=== PATIENT | male | born 1935 | race Caucasian/White ===

== ENCOUNTER 2017-07-06 05:46 | Observation (INO) | payer MEDICARE ==
[2017-07-05 13:27] LABS: BASOPHILS % 0.4 % (0.0-1.0); EOSINOPHILS # (AUTO) 0.3 (0.0-0.4); EOSINOPHILS % 2.9 % (0.0-6.0); HEMATOCRIT 46.5 % (38.2-49.6); HEMOGLOBIN 15.8 g/dL (14.0-18.0); LYMPHOCYTES % 22.9 % (18.0-39.1); MEAN CORPUSCULAR HEMOGLOBIN 33.4 pg (28-32); MEAN CORPUSCULAR VOLUME 98.3 fL (81-99); MONOCYTES % 10.8 % (4.4-11.3); NEUTROPHILS # (AUTO) 5.6 (2.1-6.9); NEUTROPHILS % 62.6 % (38.7-80.0); PLATELET COUNT 213 x10e3/uL (140-360); RED BLOOD COUNT 4.73 x10e6/uL (4.3-5.7); RED CELL DISTRIBUTION WIDTH 13.3 % (11.7-14.4)
[2017-07-05 13:42] LABS: ANION GAP 14.8 mmol/L (8-16); BLOOD UREA NITROGEN 15 mg/dL (7-26); BUN/CREATININE RATIO 17 (6-25); CALCIUM 9.5 mg/dL (8.4-10.2); CARBON DIOXIDE 25 mmol/L (22-29); CHLORIDE 105 mmol/L (98-107); EST GLOMERULAR FILTRATION RATE > 60 ML/MIN (60-); GLUCOSE 109 mg/dL (74-118); POTASSIUM 4.8 mmol/L (3.5-5.1); SODIUM 140 mmol/L (136-145)
--- NOTE | 2017-07-05 13:59 | Diagnostic Imaging Report ---
PROCEDURE: X-RAY CHEST, TWO VIEWS COMPARISON: None. INDICATIONS: PRE-OP FOR CALCULUS OF THE KIDNEYS FINDINGS: Cardiomediastinal silhouette: Enlarged and contains an AICD lead in right ventricle. The aorta is mildly ectatic. No hilar lymphadenopathy. Lungs: Mild hyperinflation. No mass or infiltrate. Pulmonary vascular markings are normal. Pleura: No pleural thickening or pleural effusion. No pneumothorax. Bones: Flowing anterior osteophytes throughout the thoracic spine. Vertebral body heights are symmetric. No focal osseous lesions. Soft tissues: Unremarkable. CONCLUSION: Cardiomegaly without vascular congestion. COPD. Osseous findings suggestive of DISH. Dictated by: Ananda Marina M.D. on 07/05/2017 at 14:09 Electronically approved by: Ananda Marina M.D. on 07/05/2017 at 14:09
[~2017-07-06] VITALS: Ht 177.8 cm; Wt 97.1 kg
[~2017-07-06 05:46] MED LIST: ALFUZOSIN HCL10 MG PO; ALPHA LIPOIC A200 MG PO; AMLODIPINE BESYL5 MG PO; CO Q-10100 MG; GABAPENTIN300 MG PO; HYDROXYZINE HCL25 MG PO; METOPROLOL TAR100 MG; SMX; XARELTO20 MG; [UNRECOGNIZED DRUG - OTHER]; [UNRECOGNIZED DRUG - OTHER] PO
--- OUTSIDE RECORDS SUMMARY | 2017-07-06 05:48 | XMS REPORT | Clinical Summary ---
Author Author [facility] Address Unknown Phone Unavailable Care Team Providers Care Disability Case Manager Name Role Phone Asked, Pcp PCP Unavailable Allergies Not on File Current Medications Not on file Active Problems Not on file Encounters Date Type Specialty Care Team Description 02/01/2017 Hospital Radiology Ryan Awan MD Clouding of consciousness Encounter 02/01/2017 Transcribe Access Ryan Awan MD Clouding of consciousness Orders (Primary Dx) after 07/05/2016 Social History Tobacco Use Types Packs/Day Years Used Date Never Assessed Sex Assigned at Date Recorded Not on file Last Filed Vital Signs Not on file Plan of Treatment Health Maintenance Due Date Last Done Comments ZOSTER VACCINE 1997 PNEUMOCOCCAL 2002 POLYSACCHARIDE VACCINE AGE 65 AND OVER PNEUMOCOCCAL-13 2002 INFLUENZA VACCINE 12/22/2016 Results * CT Head Wo Contrast (02/01/2017 11:05 AM) Specimen Performing Laboratory [facility] [address] [place] [address] Narrative EXAMINATION: CT HEAD WO CONTRAST CLINICAL HISTORY: R41.82 Altered mental statusunspecified, r41.82 COMPARISON:None TECHNIQUE: Noncontrast enhanced images of the brain were obtained from the skull base to the vertex. Both soft tissue and bone reconstruction algorithms were performed.CT imaging was performed with iterative reconstruction technique and/or automated exposure control to reduce radiation dose. FINDINGS: There is no evidence of acute intracranial hemorrhage, intracranial mass, mass effect, vasogenic edema or focal extra-axial collection. There are subtle areas of low attenuation involving the periventricular and deep white matter at the level of the hernandez radiata which are nonspecific, but most commonly related to chronic small vessel ischemic disease. The jean-white matter differentiation is preserved. The ventricles and cerebral sulci are mildly prominent bilaterally and symmetrically, most likely secondary to age-related cerebral parenchymal volume loss. There is intracranial atherosclerotic disease, with atherosclerotic calcifications evident along the cavernous and supraclinoid segments of the internal carotid arteries, as well as along the intradural segments of the vertebral arteries. Beam hardening artifact limits evaluation at the level of the middle and posterior cranial fossa, including portions of the brainstem and cerebellum. The mastoid air cells and middle ear cavities are clear. There are inflammatory mucosal changes of the right maxillary sinus, with mild thickening of its lopes , consistent with chronic sinusitis. No acute soft tissue hematoma or laceration. IMPRESSION: No acute intracranial abnormality identified. Predominantly confluent areas of low density involving the periventricular and deep white matter at the level of the hernandez radiata are nonspecific, but most commonly related to chronic small vessel ischemic disease in this age group. [id number] Procedure Note Interface, Radiology Results Incoming - 02/01/2017 11:17 AM CDT EXAMINATION: CT HEAD WO CONTRAST CLINICAL HISTORY: R41.82 Altered mental status unspecified, r41.82 COMPARISON: None TECHNIQUE: Noncontrast enhanced images of the brain were obtained from the skull base to the vertex. Both soft tissue and bone reconstruction algorithms were performed. CT imaging was performed with iterative reconstruction technique and/or automated exposure control to reduce radiation dose. FINDINGS: There is no evidence of acute intracranial hemorrhage, intracranial mass, mass effect, vasogenic edema or focal extra-axial collection. There are subtle areas of low attenuation involving the periventricular and deep white matter at the level of the hernandez radiata which are nonspecific, but most commonly related to chronic small vessel ischemic disease. The jean-white matter differentiation is preserved. The ventricles and cerebral sulci are mildly prominent bilaterally and symmetrically, most likely secondary to age-related cerebral parenchymal volume loss. There is intracranial atherosclerotic disease, with atherosclerotic calcifications evident along the cavernous and supraclinoid segments of the internal carotid arteries, as well as along the intradural segments of the vertebral arteries. Beam hardening artifact limits evaluation at the level of the middle and posterior cranial fossa, including portions of the brainstem and cerebellum. The mastoid air cells and middle ear cavities are clear. There are inflammatory mucosal changes of the right maxillary sinus, with mild thickening of its lopes , consistent with chronic sinusitis. No acute soft tissue hematoma or laceration. IMPRESSION: No acute intracranial abnormality identified. Predominantly confluent areas of low density involving the periventricular and deep white matter at the level of the hernandez radiata are nonspecific, but most commonly related to chronic small vessel ischemic disease in this age group. [id number] after 07/05/2016 Insurance Payer Benefit Subscriber ID Type Phone Address Plan / Group MEDICARE MEDICARE xxxxxxxxxx Medicare [place], [place] PART A [place] B AARP AARP xxxxxxxxx Commercial SUPPLEMENT
--- OUTSIDE RECORDS SUMMARY | 2017-07-06 05:48 | XMS REPORT ---
Author Author [facility] Address Unknown Phone Unavailable Care Team Providers Care Brick Kiln Burner Name Role Phone SHAI AMAYA Unavailable Unavailable Problems This patient has no known problems. Allergies, Adverse Reactions, Alerts This patient has no known allergies or adverse reactions. Medications This patient has no known medications. Results Test Description Test Time Test Comments Text Results Atomic Results Result Comments CHEST 2 VIEWS [place] [address] Patient Name: CHEKO STRINGER MR #: [id number] : 1935 Age/Sex: 81/M Req # : [id number] [facility] Physician: Ordered by: SHAI AMAYA MD Report #: [id number] Location: OR Room/Bed: Procedure: [id number] DX/CHEST 2 VIEWS Exam Date: 07/05/17 Exam Time : 1330 REPORT STATUS: Signed PROCEDURE: X-RAY CHEST, TWO VIEWS COMPARISON: None. INDICATIONS: PRE-OP FOR CALCULUS OF THE KIDNEYS FINDINGS: Cardiomediastinal silhouette: Enlarged and contains an AICD lead in right ventricle. The aorta is mildly ectatic. No hilar lymphadenopathy. Lungs: Mild hyperinflation. No mass or infiltrate. Pulmonary vascular markings are normal. Pleura: No pleural thickening or pleural effusion. No pneumothorax. Bones: Flowing anterior osteophytes throughout the thoracic spine. Vertebral body heights are symmetric. No focal osseous lesions. Soft tissues: Unremarkable. CONCLUSION: Cardiomegaly without vascular congestion. COPD. Osseous findings suggestive of DISH. Dictated by: Suha Marina M.D. on 07/05/2017 at 14:09 Electronically approved by: Suha Marina M.D. on 07/05/2017 at 14:09 Dictated By: USHA MARINA MD 08 Transcribed By: ROSAS on 07/05 COPY TO: SHAI AMAYA MD
[2017-07-06] MEDS ORDERED: CEFTRIAXONE SOD 1 GM VIAL ONE (06:16)
[2017-07-06] MEDS ORDERED: BELLADONNA/OPIUM 60 MG SUPP PR ONE (07:51)
[2017-07-06] MEDS ORDERED: HYDROCODONE/APAP 5MG-325MG TAB PO PRN (09:15)
--- OUTSIDE RECORDS SUMMARY | 2017-07-06 09:24 | XMS REPORT | Clinical Summary ---
Author Author [facility] Address Unknown Phone Unavailable Care Team Providers Care Rn Field Name Role Phone Asked, Pcp PCP Unavailable [...] Contrast (02/01/2017 11:05 AM) Specimen Performing Laboratory [facility] [address] [place] [address] Narrative EXAMINATION: CT HEAD WO CONTRAST CLINICAL [...] vessel ischemic disease in this age group. [id number] Procedure Note Interface, Radiology Results Incoming - [...] vessel ischemic disease in this age group. [id number] after 07/05/2016 Insurance Payer Benefit Subscriber ID Type Phone Address Plan / Group MEDICARE MEDICARE xxxxxxxxxx Medicare [place], [place] PART A AND B AARP AARP xxxxxxxxx Commercial SUPPLEMENT
[2017-07-06] MEDS ORDERED: SODIUM CHLORIDE 0.45% 1,000 ML IV SCH (10:00)
[2017-07-06 11:42] VITALS: BP 122/71
[2017-07-06 12:09] VITALS: BP 128/94
[2017-07-06] MEDS ORDERED: LEVAQUIN500 MG PO (14:13)
[2017-07-06] MEDS ORDERED: TYLENOL WITH C1 EACH PO (14:15)
[2017-07-06 15:30] VITALS: BP 113/60
[2017-07-06] MEDS ORDERED: DEXAMETHASONE SOD PHOS INJ 4 MG/ML VIAL ONE (17:40)
[2017-07-06] MEDS ORDERED: PROPOFOL IV EMULSION 10 MG/ML 20 ML VIAL ONE (17:40)
[2017-07-06] MEDS ORDERED: LIDOCAINE HCL 2% LOCAL INJ 5 ML SDV VIAL INJ ONE (17:40)
[2017-07-06] MEDS ORDERED: SEVOFLURANE INHAL SOLN 250 ML PEN BTL ONE (17:40)
[2017-07-06] MEDS ORDERED: ONDANSETRON HCL INJ 2 MG/ML VIAL ONE (17:40)
[2017-07-06] MEDS ORDERED: MIDAZOLAM HCL 2 MG/2 ML VIAL ONE (17:54)
[2017-07-06] MEDS ORDERED: FENTANYL CITRATE/PF 100MCG/2 ML INJ ONE (17:54)
--- NOTE | 2017-07-11 14:03 | Operative Report ---
DATE OF PROCEDURE: July 06, 2017 PREOPERATIVE DIAGNOSES 1. Bladder stones. 2. Bilateral obstruction. POSTOPERATIVE DIAGNOSES 1. Bladder stones. 2. Bilateral obstruction. OPERATIVE PROCEDURES PERFORMED 1. Cystolitholapaxy. 2. Transurethral resection of prostate. ANESTHESIA: General anesthesia. ESTIMATED BLOOD LOSS: Minimal. INDICATIONS: Mr. Jorge Pa is a 81-year-old gentleman who was recently noted to have gross hematuria. He underwent upper tract evaluation, which revealed largely normal kidneys, but multiple stones with 1 large stone in his bladder. He now presents for management of this problem. PROCEDURE IN DETAIL: The patient was brought to the operating room and placed in the supine position. After administration of general anesthesia, was placed in the dorsal lithotomy position, and prepped and draped in the usual sterile fashion. Cystourethroscopy was performed using a 21-Cameroonian cystoscope. The anterior and posterior urethra were noted to be normal. The prostate revealed a significant high bladder neck with evidence of trilobar hyperplasia. However, the prostatic fossa was relatively short. The bladder was entered with mild difficulty. Upon entrance into the bladder, the ureteral orifices were in normal anatomical position and produced large clear efflux. There were grade 2 trabeculations noted throughout with diverticula formation. There were 15-20 small stones varying in size from 2-3 mm to approximately 1 cm in diameter. Most of these were irrigated free of the bladder later on in the procedure. There were no mucosal lesions identified except for mild erythema noted of the dome presumably from stone irritation. The cystoscope and the sheath were removed with the bladder left full. A 26-Cameroonian resectoscope sheath was placed in a retrograde fashion. The [employer] resectoscope was used to perform the procedure. First, all the stones were irrigated free of the bladder. These were sent to pathology for identification. Transurethral resection of prostate was then performed. Beginning at the 1 o'clock position and proceeding in a clockwise fashion down to the 6 o'clock position, all the adenomatous tissue between the bladder neck and the vera was resected down to the level of the surgical capsule. A similar procedure was performed on the contralateral side in a counter clockwise fashion beginning at the 11 o'clock position and ending at the 6 o'clock position. The residual tissue noted on the roof and the floor was then resected down as well. The [email or web address] evacuator was used to remove all chips, and these were sent to pathology for microscopic analysis. There was no gross penetration or perforation of the capsule noted during the procedure. No gross bleeding noted at the conclusion of the procedure. The bladder was left full. Cystoscope and the sheath were removed. The patient was noted to have a brisk urinary flow with Coude. A 24-Cameroonian, 3-way Coude Tucker was placed, and the balloon inflated to 45 mL of sterile water. The patient was started on continuous bladder irrigation, and returned to the supine position. Anesthesia was reversed, and he was transferred to the bed and taken to the postanesthesia care unit in good condition. Of note, the needle and instrument counts were correct at the conclusion of the case. Job#: [id number] [email or web address]
== END 2017-07-06 18:11 | disposition home or self-care (01) ==
LOC: OR 05:46 → IMCU 09:22
PROVIDERS: ADMIT Urology; ATTEND Urology
DX: N40.1 Benign prostatic hyperplasia with lower urinary tract symptoms (principal); N21.0 Calculus in bladder; N13.8 Other obstructive and reflux uropathy; R31.29 Other microscopic hematuria
CPT/HCPCS: 36415 ×2; 52317; 52630; 71046; 80048; 82948; 85025; 88300; 88305; 93005; G0378; J0696; J1100; J2001; J2250; J2405